=== PATIENT | male | born 1940 | race Caucasian/White ===

== ENCOUNTER 2022-01-27 17:22 | Emergency (ER) | payer MEDICARE, BC, SELFPAY ==
--- NOTE | 2022-01-27 17:24 | ED.ARRPALP ---
HPI - Arrhythmia/Palpitations General Chief Complaint: Arrhythmia/Palpitations Stated Complaint: palpitations Time Seen by Provider: 01/27/22 17:23 Source: patient Mode of arrival: ambulatory Limitations: no limitations History of Present Illness HPI narrative: Mr. Kennedy is a 81-year-old male patient presenting to the clinic today with complaints of heart palpitations that began earlier today. He reports his last episode of heart palpitations was when he was being registered to be seen in the clinic today. He denies any chest pain or shortness of breath with these palpitations but feels short burst of his heart fluttering. complaint: palpitations Related Data Home Medications Medication Instructions Recorded Confirmed aspirin [Baby Aspirin] 81 mg PO DAILY 01/27/22 01/27/22 gabapentin 300 mg PO BID 01/27/22 01/27/22 lisinopril 40 mg PO DAILY 01/27/22 01/27/22 metoprolol succinate 75 mg PO DAILY 01/27/22 01/27/22 Allergies Allergy/AdvReac Type Severity Reaction Status Date / Time No Known Allergies Allergy Mild Verified 01/27/22 18:19 Review of Systems Review of Systems: Pertinent positives per HPI. Patient denies any fever, chills, rash, headache, visual changes, dizziness, cough, runny nose, sore throat, shortness of breath, chest pain, nausea, vomiting, diarrhea, constipation, abdominal pain, or any urinary issues. PMFSH Comments At the time of my signature, I reviewed and agree with the nursing past medical, surgical, social, and family history. There is no relevant family history pertinent to the patient complaint. Exam Narrative: General: Well-developed, obese, in no apparent distress Head: Normocephalic, atraumatic. Cardio: Regular rate and rhythm, s1 and s2 normal, no S3 or S4, no murmur appreciated. Resp: Clear to auscultation bilaterally, no rhonchi, rales, wheezing or rubs. Extremities: No deformity, no edema, no cyanosis, capillary refill less than 2 seconds, peripheral pulses palpable and strong. Integumentary: [place], warm, and dry, intact without lesion, no rashes. Course Course Emergency Course: Portions of this record may have been created with voice recognition software. Level of Care: Express Care Visit Vital Signs Vital signs: Vital Signs Temperature 36.3 C L 01/27/22 17:36 Pulse Rate 63 01/27/22 17:36 Respiratory Rate 24 H 01/27/22 17:36 Blood Pressure 172/78 H 01/27/22 17:36 Pulse Oximetry 97 01/27/22 17:36 Temperature 36.3 C L 01/27/22 17:36 Pulse Rate 63 01/27/22 17:36 Respiratory Rate 24 H 01/27/22 17:36 Blood Pressure 172/78 H 01/27/22 17:36 Pulse Oximetry 97 01/27/22 17:36 Vital signs reviewed Transfer Transfered to: [facility]: [facility] Transfer rationale: New onset fluttering/atrial fib Accepting physician: Dr. Mtz Transfer comments: Transferred via ALS MDM - Arrhythmia/Palpitations MDM Narrative Medical decision making narrative: At the time of visit patient is resting comfortably on the exam table. EKG shows sinus rhythm with heart rate 65 bpm. Recommend transfer to the ED for evaluation to get cardiac work-up completed. Patient was placed on the monitor technician and he had another fluttering episode and it appears that he may have went into atrial fibrillation and then converted back into sinus rhythm on the monitor technician. ECG Data EKG #1: Attestation: I personally reviewed and interpreted this ECG as follows: ECG completion date: 01/27/22 ECG completion time: 17:34 Prior ECG tracings: not available for review Ischemic changes: other (Increase in QRS duration ) Interpretation: EKG was completed and shows sinus rhythm with 65 bpm. QRS duration is wide with a conduction delay of 110+ milliseconds. MT interval was 186 ms, QRS durations 111 ms, QT/QTc is 394/405 ms P?RR?T axis is 11/-54/18 average RR is 921 ms, QTc B is 410 ms and QTC F is 404 ms Discharge Plan Discharge Clinical Impress
[2022-01-27 17:36] VITALS: BP 172/78; PULSE 63; RESP 24; TEMP 36.3; O2SAT 97
== END 2022-01-27 17:47 | disposition short-term general hospital (02) ==
PROVIDERS: Emergency Provider Nurse Practitioner Family
DX: I48.0 Paroxysmal atrial fibrillation (principal); Z79.82 Long term (current) use of aspirin; I10 Essential (primary) hypertension
CPT/HCPCS: 99211; 99215; G0463

== ENCOUNTER 2022-01-27 18:11 | Emergency (ER) | payer MEDICARE, BC, SELFPAY ==
[2022-01-27] VITALS (12 sets, daily range): BP systolic 153–178; BP diastolic 82–90; PULSE 57–65; RESP 13–23; TEMP 36.4; O2SAT 95–100
--- NOTE | ~2022-01-27 | XR_ITS ---
EXAMINATION: XR chest 2V DATE: 01/27/2022 18:52 INDICATION: Arrhythmia. TECHNIQUE: Frontal and lateral views of the chest were obtained. COMPARISON: None. FINDINGS: The chest demonstrates clear lungs without pneumonia, pleural effusion, or pneumothorax. Th e heart size is normal. There are changes of anterior and posterior fusion procedures in cervical spi ne. There is mild anterior wedging of a midthoracic vertebral body, likely chronic. IMPRESSION: 1. No acute cardiopulmonary disease. Reviewed, dictated and finalized at location A.
--- NOTE | 2022-01-27 18:14 | ECG_ITS ---
Measurements Intervals [place] Rate: 60 P: 0 TX: 187 QRS: -53 QRSD: 108 T: 1 QT: 392 QTc: 392 Interpretive Statements SINUS RHYTHM LEFT ANTERIOR FASCICULAR BLOCK BORDERLINE T WAVE ABNORMALITY- INFERIOR LEADS BASELINE ARTIFACT- I, II, AVR, AVL ABNORMAL ECG Electronically Signed On 01-27-2022 20:29:46 CDT by Thom Forte D.O.
[2022-01-27 18:48] LABS: Basophils Percent Auto 0.5 % (0.2-1.2); Eosinophils Absolute Auto 0.2 K/mm3 (0-0.3); Eosinophils Percent Auto 3.7 % (0-4.4); Hematocrit 43.6 % (42.0-52.0); Hemoglobin 14.5 g/dL (14.0-18.0); Immature Granulocyte Absolute 0.02 K/mm3 (0.00-0.031); Immature Granulocyte Percent A 0.3 % (0-0.5); Immature Platelet Fraction Pct 5.8 % (0.9-11.2); Lymphocytes Absolute Auto 1.73 K/mm3 (0.9-3.2); Lymphocytes Percent Auto 27.9 % (18.3-44.2); Mean Corpuscular HGB Conc 33.3 g/dl (32-36); Mean Corpuscular Hemoglobin 30.7 pg (26-34); Mean Corpuscular Volume 92.4 fl (80-100); Mean Platelet Volume 10.7 fl (7.4-10.4); Monocytes Absolute Auto 0.5 K/mm3 (0.1-0.6); Monocytes Percent Auto 8.1 % (2.6-8.5); Neutrophils Absolute Auto 3.7 K/mm3 (1.3-6.7); Neutrophils Percent Auto 59.5 % (45.5-73.1); Platelet Count Result 145 k/mm3 (150-375); Red Blood Count 4.72 M/mm3 (4.6-6.20); White Blood Count 6.2 K/mm3 (4.5-10.0)
[2022-01-27 19:00] LABS: Alanine Aminotransferase 23 U/L (6-50); Albumin Level 4.5 g/dL (3.5-5.1); Alkaline Phosphatase 83 U/L (38-126); Anion Gap 6 mmol/L (8-16); Aspartate Amino Transferase 28 U/L (17-59); Bilirubin,Total 0.7 mg/dL (0.2-1.3); Blood Urea Nitrogen 21 mg/dL (9-20); Calcium 9.1 mg/dL (8.4-10.2); Carbon Dioxide 25 mmol/L (22-30); Chloride 105 mmol/L (98-107); Estimated CRCL calculation 49 ml/min; Estimated Glomerular Filt Rate 53; Glucose 120 mg/dL (65-110); Lipase 383 U/L (23-300); Potassium 4.3 mmol/L (3.4-5.0); Sodium 136 mmol/L (137-145)
[2022-01-27 19:01] LABS: Prothrombin Time 13.2 Seconds (11.1-14.7)
[2022-01-27 19:02] LABS: Partial Thromboplastin Time 27.7 SECONDS (22.3-36.8)
[2022-01-27 19:11] LABS: Troponin I < 0.012 ng/mL (0.000-0.034)
[2022-01-27 21:49] LABS: Troponin I < 0.012 ng/mL (0.000-0.034)
--- NOTE | 2022-01-28 01:03 | ED.ARRPALP ---
HPI - Arrhythmia/Palpitations General Chief Complaint: Arrhythmia/Palpitations Stated Complaint: heart fluttering Time Seen by Provider: 01/27/22 20:17 History of Present Illness HPI narrative: 81-year-old male states that he had a twinge of flutter at home while he was sitting down that lasted less than a minute, denies any exertion, though his daughter states that he had been climbing a ladder earlier in the day. Patient's denies any chest pain, shortness of breath, or any symptoms at this time. He has not had symptoms like this before. He was sent here from urgent care, per urgent care documentation there have been suspicion of possible atrial fibrillation on the monitors but this not captured on EKG. complaint: irregular heart beat Onset (ago): hour(s) (6) Duration: intermittent and now resolved Context: occurred during rest Associated symptoms: denies other symptoms Related Data Home Medications Medication Instructions Recorded Confirmed aspirin [Baby Aspirin] 81 mg PO DAILY 01/27/22 01/27/22 gabapentin 300 mg PO BID 01/27/22 01/27/22 lisinopril 40 mg PO DAILY 01/27/22 01/27/22 metoprolol succinate 75 mg PO DAILY 01/27/22 01/27/22 Allergies Allergy/AdvReac Type Severity Reaction Status Date / Time No Known Allergies Allergy Mild Verified 01/27/22 20:19 Review of Systems Review of Systems: All systems reviewed & are unremarkable except as noted in HPI and below PMFSH Past Medical History Medical History (Updated 01/28/22 @ 01:05 by Poonam Gtz MD) Hypertension Exam Narrative: EXAMINATION OF ORGAN SYSTEMS/BODY AREAS: Constitutional: Vital signs per nursing GENERAL:[No acute distress, non-toxic appearing.] HEAD: Normal with no signs of head trauma. EYES: EOMI, conjunctiva normal ENT: Hearing grossly intact LUNGS: Nonlabored breathing. HEART: [Regular rate and rhythm] ABD: [Soft], [nontender to palpation] EXT: Normal range of motion SKIN: [No rashes or lesions.] NEURO: [Alert and oriented x 3. No gross focal sensory or strength deficits.] PSYCH: Normal affect Course Course Emergency Course: 81-year-old male presents here with episode of palpitations, urgent care was concerned he may have had paroxysmal atrial fibrillation. Vital signs stable, exam including cardiopulmonary exam unremarkable. Ddx includes arrhythmia, ACS/CT. While he was here he did have another episode or 2, when I looked at the telemetry strip over the 3 hours he was here, I do not see any atrial fibrillation, I did note 1-2 PACs around the time that he noted of feeling of irregular heartbeat. I did speak with product safety coordinator on-call, we agreed no negation for anticoagulation as I do not see any episodes of atrial fibrillation here, she will try to schedule him for clinic in the next few days for Holter monitor, I have discussed this with family at bedside, his labs here including troponins are reassuring, EKG is reassuring, he can always return for any further issues. Vital Signs Vital signs: Vital Signs Temperature 97.5 F L 01/27/22 18:17 Pulse Rate 60 01/27/22 18:17 Respiratory Rate 16 01/27/22 18:17 Blood Pressure 178/90 H 01/27/22 18:17 Pulse Oximetry 98 01/27/22 18:17 Temperature 97.5 F L 01/27/22 18:17 Pulse Rate 59 L 01/27/22 22:00 Respiratory Rate 17 01/27/22 22:00 Blood Pressure 153/87 H 01/27/22 21:15 Pulse Oximetry 100 01/27/22 22:00 MDM - Arrhythmia/Palpitations Lab Data Result diagrams: 01/27/22 18:39 01/27/22 18:39 Labs: Lab Results 01/27/22 01/27/22 01/27/22 Range/Units 18:39 18:39 18:39 WBC 6.2 (4.5-10.0) K/mm3 RBC 4.72 (4.6-6.20) M/mm3 Hgb 14.5 (14.0-18.0) g/dL Hct 43.6 (42.0-52.0) % MCV 92.4 (80-100) fl MCH 30.7 (26-34) pg MCHC 33.3 (32-36) g/dl RDW 13.0 (11.5-14.5) % Plt Count 145 L (150-375) k/mm3 MPV 10.7 H (7.4-10.4) fl Immature Gran % (Auto) 0.3 (0-0.5) % Neut % (Auto) 59
== END 2022-01-27 22:10 | disposition home or self-care (01) ==
PROVIDERS: Emergency Medicine; Emergency Provider Emergency Medicine
DX: R00.2 Palpitations (principal); I10 Essential (primary) hypertension; Z79.82 Long term (current) use of aspirin
CPT/HCPCS: 36415; 71046; 80053; 83690; 84484; 85025; 85055; 85610; 85730; 93005; 99215; 99284; G0463